=== PATIENT | male | born 1975 | race African-American/Black ===

== ENCOUNTER 2022-10-09 15:56 | Emergency (ER) | payer MEDICAID ==
[~2022-10-09] VITALS: Ht 185.4 cm; Wt 144.0 kg
[2022-10-09 16:00] VITALS: BP 170/96
[2022-10-09 20:31] LABS: BASOPHILS % 1.1 % (0.0-2.0); EOSINOPHILS % 1.4 % (0.0-5.0); HEMATOCRIT. 41.9 % (42.0-52.0); HEMOGLOBIN. 14.5 g/dL (14.0-18.0); MEAN CORPUSCULAR HEMOGLOBIN 31.8 pg (28.0-32.0); MEAN PLATELET VOLUME 8.2 fl (7.4-10.4); NEUTROPHILS % 62.5 % (40.0-76.0); PLATELET 344 x1000/uL (130-400); RED BLOOD CELL COUNT 4.56 mill/uL (4.7-6.1)
== END 2022-10-09 23:43 | disposition left against medical advice (07) ==
LOC: ER 15:56
DX: R07.89 Other chest pain (principal); I10 Essential (primary) hypertension; E03.9 Hypothyroidism, unspecified; Z68.41 Body mass index [BMI] 40.0-44.9, adult
CPT/HCPCS: 36415; 71045; 80053; 84484; 85025; 93005; 99285